=== PATIENT | male | born 1995 | race Two or more races ===

== ENCOUNTER 2016-08-27 01:14 | Emergency (ER) | payer OTHER ==
[2016-08-27] MEDS ORDERED: OMEPRAZOLE20 M4 PO (01:42)
== END 2016-08-27 02:23 ==
LOC: EDMED 01:14
DX: S93.401A Sprain of unspecified ligament of right ankle, initial encounter (principal); Z87.891 Personal history of nicotine dependence; X50.1XXA Overexertion from prolonged static or awkward postures, initial encounter; Y93.A2 Activity, calisthenics; Y92.89 Other specified places as the place of occurrence of the external cause; Y99.8 Other external cause status